=== PATIENT | male | born 1960 | race Caucasian/White ===

== ENCOUNTER 2018-05-13 10:55 | Day surgery (SDC) | payer OTHER ==
[~2018-05-13] VITALS: Ht 175.3 cm; Wt 83.9 kg
[~2018-05-13 10:55] MED LIST: COZAAR100 MG PO; CRESTOR40 MG PO; INVOKANA300 MG PO; JANUMET XR 1001 EACH PO; OZEMPIC0.25 MG/0. SC
[2018-05-13 11:38] VITALS: BP 129/73
[2018-05-13 14:15] VITALS: BP 137/72
== END 2018-05-13 14:44 | disposition home or self-care (01) ==
LOC: SDC 10:55
PROVIDERS: Orthopaedic Surgery Hand Surgery
DX: M71.342 Other bursal cyst, left hand (principal); M89.9 Disorder of bone, unspecified; E11.9 Type 2 diabetes mellitus without complications; Z79.82 Long term (current) use of aspirin; Z79.84 Long term (current) use of oral hypoglycemic drugs; I10 Essential (primary) hypertension; E78.00 Pure hypercholesterolemia, unspecified
CPT/HCPCS: 82948; J0690; J2250; S0020